=== PATIENT | female | born 1975 | race Caucasian/White ===

== ENCOUNTER 2016-11-18 16:37 | Emergency (ER) | payer OTHER ==
[~2016-11-18 16:37] MED LIST: ASPIR-LOW81 MG PO; DEPO-PROVE150 MG/11 IM; GLUCOPHAGE1000 MG PO; HUMALOG100 UNIT/1 SQ; INVOKANA300 MG PO; ISOSORBIDE DINI30 MG PO; LANTUS100 UNIT/1 SQ; NEURONTIN800 MG PO; NITROSTAT0.4 MG SL; PERCOCET 10-321 EACH PO; PRILOSEC OTC20 MG PO; SINGULAIR10 MG PO; VENTOLIN/PROVE0.5 ML INH; XANAX PO
== END 2016-11-18 18:59 | disposition home or self-care (01) ==
LOC: ER1 16:37
DX: S83.92XA Sprain of unspecified site of left knee, initial encounter (principal); S39.012A Strain of muscle, fascia and tendon of lower back, initial encounter; E11.9 Type 2 diabetes mellitus without complications; J45.909 Unspecified asthma, uncomplicated; Z79.82 Long term (current) use of aspirin; Z88.8 Allergy status to other drugs, medicaments and biological substances; W01.0XXA Fall on same level from slipping, tripping and stumbling without subsequent striking against object, initial encounter; Y92.511 Restaurant or cafe as the place of occurrence of the external cause
CPT/HCPCS: 72100; 73110; 73564; 99284